=== PATIENT | female | born 1985 | race Hispanic/Latino ===

== ENCOUNTER 2024-03-26 08:09 | Emergency (ER) | payer BC, MEDICAID ==
[~2024-03-26] VITALS: Ht 165.1 cm; Wt 108.9 kg
[2024-03-26 08:10] VITALS: BP 135/85; PULSE 90; RESP 16
[2024-03-26] MEDS ORDERED: CIPOTIC OT (08:46)
== END 2024-03-26 09:19 | disposition home or self-care (01) ==
LOC: EDH 08:09
DX: T16.1XXA Foreign body in right ear, initial encounter (principal); X58.XXXA Exposure to other specified factors, initial encounter; Y93.89 Activity, other specified; Y92.89 Other specified places as the place of occurrence of the external cause; Y99.8 Other external cause status

== ENCOUNTER 2025-02-25 15:42 | Emergency (ER) | payer BC, MEDICAID ==
[~2025-02-25] VITALS: Ht 165.1 cm; Wt 116.6 kg
[~2025-02-25 15:42] MED LIST: CIPOTIC OT
--- NOTE | 2025-02-25 16:23 | ERN ---
General Chief Complaint: OB>20 weeks gest. Stated Complaint: BACK PAIN, VAGINAL BLEEDING, 33 WKS Time Seen by MD: 15:45 Time Seen by Midlevel: 15:45 Source: patient History of Present Illness Initial Comments 39 y/o female presents to the ED due to vaginal bleeding onset [employer]. Patient states she was in the shower and noted large amount of blood, one time episode bleeding has now resolved. Patient states she is 33 weeks A0, OBGYN in [place], [place]. Patient states back pain but denies any abdominal pain, cramping, vomiting or further associated symptoms. Denies significant past medical history. Allergies: Coded Allergies: No Known Allergies (Unverified Allergy, Unknown, 03/26/24) Home Meds Active Scripts Ciprofloxacin/Hydrocortisone (Cipro Hc Otic Suspension) 0.2 %-1 % Drops.susp, 10 ML OT DAILY for 5 Days, #1 DROP Prov:BARB WOMACK MD 03/26/24 Past Medical History Past Medical History: No Pertinent History Past Surgical History: None Female( History) : 5 Para: 4 Aborts: 0 ROS Dictation Constitutional: Negative for fever,chills, and weight loss Eyes: Negative for injury, pain,redness, and discharge ENT: Negative for injury,pain or swelling Cardiovascular: Negative for chest pain, palpitations, and edema Respiratory: Negative for shortness of breath, cough, and wheezing, Abdomen/GI: Negative for abdominal pain, nausea, vomiting, diarrhea, and constipation Back: Positive for back pain Negative for injury and pain : Positive for vaginal bleeding Negative for painful urination, bleeding or discharge MS/Extremity: Negative for injury and deformity Skin: Negative for rash, and discoloration Neuro: Negative for headache, weakness, numbness, tingling, and seizure Psych: Negative for suicide ideation, homicidal ideation, and hallucinations Physical Exam Physical Exam Dictation General: awake, alert, no acute distress Head/Face: Normocephalic, atraumatic Eyes: PERRL, EOMI, normal conjunctiva ENT: oral cavity clear, oral mucosa moist Neck: Supple, normal range of motion Cardiovascular: RRR, normal S1/S2 Respiratory: CTAB, no respiratory distress Abdomen: Soft, non-tender, non-distended, no guarding or rebound. : No active bleeding Skin: Warm, dry, normal turgor, no rash MS/Extremity: Pulses equal, no cyanosis, neurovascular intact, FROM Neuro: COAx4, GCS 15, strength 5/5, CN 2-12 intact, normal cerebellar exam, normal gait Psych: Normal behavior, mood, and affect normal Results Laboratory and Microbiology Lab and Micro Result Laboratory Tests Test 02/25/25 16:12 White Blood Count 7.1 K/uL (4.8-10.8) Red Blood Count 4.00 MIL/uL (4.00-5.50) Hemoglobin 8.5 g/dL (12.0-16.0) L Hematocrit 28.4 % (36-48) L Mean Corpuscular Volume 71.0 fL (79-99) L Mean Corpuscular Hemoglobin 21.3 pg (27.0-33.0) L Mean Corpuscular Hemoglobin Concent 29.9 g/dL (32.0-36.0) L Red Cell Distribution Width 15.4 % (11.0-15.5) Platelet Count 317 K/uL (130-400) Mean Platelet Volume 11.0 fL (7.5-10.5) H Immature Granulocyte % (Auto) 0.3 % (0-1) Neutrophils (%) (Auto) 66.8 % (40.0-77.0) Lymphocytes (%) (Auto) 23.5 % (21.0-51.0) Monocytes (%) (Auto) 6.0 % (3.0-13.0) Eosinophils (%) (Auto) 2.7 % (0.0-8.0) Basophils (%) (Auto) 0.7 % (0.0-5.0) Neutrophils # (Auto) 4.7 K/uL (1.8-7.7) Lymphocytes # (Auto) 1.7 K/uL (1.0-4.8) Monocytes # (Auto) 0.4 K/uL (0.1-1.0) Eosinophils # (Auto) 0.19 K/uL (0.00-0.70) Basophils # (Auto) 0.05 K/uL (0.00-0.20) Absolute Immature Granulocyte (auto 0.02 K/uL (0-1) Nucleated Red Blood Cells 0.0 % (0.0-0.19) Red Blood Cell Morphology See comments Sodium Level 135 mmol/L (136-145) L Potassium Level 3.5 mmol/L (3.5-5.1) Chloride Level 106 mmol/L (101-111) Carbon Dioxide Level 20 mmol/L (21-32) L Blood Urea Nitrogen 6 mg/dL (7-18) L Creatinine 0.4 mg/dL (0.5-1.0) L Glomerular Filtration Rate Calc 131 mL/min (>90) Random Glucose 82 mg/dL (70-105) Total Calcium 8.1 mg/dL (8.5-10.1) L Human Chorionic Gonadotropin, Quant 04251 mIU/mL (0-5) H Labs Reviewed?: Yes EKG/XRAY/US/CT/MRI Ultrasound Comment REASON: Vaginal bleeding ORDERING PHYSICIAN: LEEROY GRANT PROCEDURE: OB >14 - US OB >14 WEEKS Examination: OB ultrasound greater than 14 weeks Clinical history: Vaginal bleeding Comparison: None Findings: Grayscale and color ultrasound images of the pelvis were obtained. There is a single live intrauterine with an approximate gestational age of 34 weeks and 5 days (???3 weeks) according to the biometry, in the cephalic orientation, with a regular heart rate of 152 bpm. There is longitudinal lie, and a normal amniotic fluid index of 10 cm's. The estimated weight is 2441 g ???356 g. The placenta is anterior and grade 2 maturity. There is no previa. The visualized anatomy is within normal limits. The cervix was not adequately visualized for characterization. IMPRESSION: 1. Single viable intrauterine at 34 weeks 5 days gestation, cephalic presentation. 2. No acute findings. /[place] DICTATED BY: PAUL RUSSELL Jr., MD DATE: 02/25/25 184 [facility] MDM: Differential diagnosis: Threatened , UTI, uterine rupture, placenta previa, placental abruption Rationale: 39 y/o female presents to the ED due to vaginal bleeding onset [employer]. Patient states she was in the shower and noted large amount of blood, one time episode bleeding has now resolved. Patient states she is 33 weeks A0, OBGYN in [place], [place]. Patient states back pain but denies any abdominal pain, cramping, vomiting or further associated symptoms. Denies significant past medical history. Labs obtained indicating anemia with hemoglobin of 8.5, hyponatremia 135, BUN six, creatinine 0.4, hCG 77204. Ultrasound obtained indicating a single viable intrauterine at 34 weeks five days gestation cephalic presentation, 152 beats per minute, no acute findings. No active bleeding noted on vaginal examination. Patient was educated on findings and decision for transfer. Patient verbalized understanding and agrees with transfer. Patient accepted at [facility] There are no social concerns with this patient. I independently interpreted the test that were performed, results were reviewed by me and considered findings on radiology if ordered. Medical management and examination interpretation discussions were had by me with other qualified healthcare professionals as indicated for the patient's care. ED Course Orders Procedure Category Date Status Time Cbc With Differential LAB 02/25/25 Complete 15:52 Basic Metabolic Panel LAB 02/25/25 Complete 15:52 Urinalysis LAB 02/25/25 Logged W/Microscopic 15:52 Hcg,Quantitative LAB 02/25/25 Complete 15:52 Us Ob >14 Weeks US 02/25/25 Resulted 15:52 0.9%Nacl 1000ml (Ns PHA 02/25/25 In Process 1000ml) 17:30 Current Medications Medications (Trade) Dose Ordered Sig/Lucrecia Route PRN Reason Start Time Stop Time Status Last Admin Dose Admin Sodium Chloride 1,000 ml @ 0 mls/hr ONCE IV 02/25/25 17:30 02/26/25 17:29 Vital Signs Date Time Temp Pulse Resp B/P (MAP) Pulse Ox O2 Delivery O2 Flow Rate FiO2 02/25/25 16:21 88 20 115/51 97 Room Air* 0 21 02/25/25 15:44 97.9 92 16 117/76 98 Room Air 0 DX & DISP Disposition: Transfer Decision to Admit Date: Feb 25, 2025 Departure Impression: Primary Impression: Vaginal bleeding in patient after first trimester Condition: Stable Referrals: ANU CERVANTES MD (PCP) I performed the substantive portion of the visit. I have reviewed and personally made and approve the management plan that is documented in the notes by myself or the MAYRA. I acknowledge full responsibility for the patient's management plan. LEEROY GRANT Feb 25, 2025 16:23
[2025-02-25 16:27] LABS: IMMATURE GRANULOCYTE ABSOLUTE 0.02 K/uL (0-1); NUCLEATED RED BLOOD CELLS 0.0 % (0.0-0.19); PLATELET COUNT (AUTO) 317 K/uL (130-400); RED BLOOD CELL COUNT(AUTO) 4.00 MIL/uL (4.00-5.50); RED CELL DISTRIBUTION WIDTH 15.4 % (11.0-15.5); WHITE BLOOD COUNT (AUTO) 7.1 K/uL (4.8-10.8)
[2025-02-25 16:42] LABS: CREATININE 0.4 mg/dL (0.5-1.0); GLOMERULAR FILTR. RATE CALC 131.0 mL/min (>90); GLUCOSE,RANDOM 82.0 mg/dL (70-105); SODIUM SERUM 135.0 mmol/L (136-145); UREA NITROGEN, BLOOD 6.0 mg/dL (7-18)
[2025-02-25 17:09] LABS: HCG,QUANTITATIVE 33365.0 mIU/mL (0-5)
--- NOTE | 2025-02-25 17:45 | HMCIMG ---
Examination: OB ultrasound greater than 14 weeks Clinical history: Vaginal bleeding Comparison: None Findings: Grayscale and color ultrasound images of the pelvis were obtained. There is a single live intrauterine with an approximate gestational age of 34 weeks and 5 days (???3 weeks) according to the biometry, in the cephalic orientation, with a regular heart rate of 152 bpm. There is longitudinal lie, and a normal amniotic fluid index of 10 cm's. The estimated weight is 2441 g ???356 g. The placenta is anterior and grade 2 maturity. There is no previa. The visualized anatomy is within normal limits. The cervix was not adequately visualized for characterization. IMPRESSION: 1. Single viable intrauterine at 34 weeks 5 days gestation, cephalic presentation. 2. No acute findings. /[place]
--- NOTE | 2025-02-25 18:00 | NUR ---
CALLED [facility] TO ETA ON EMS TRANSFER AND THEY STATE PT IS NEXT IN LINE. NO ETA GIVEN.
--- NOTE | 2025-02-25 18:54 | NUR ---
CALLED [facility] FOR ETA FOR OB TRANSFER AND THEY STATE DUE TO EMERGENT CALLS THAT THEY ANSWER THOSE CALLS BUT THAT SHE IS NEXT IN LINE. SAME REPORT GIVEN TO ME 1 HR AGO.
[2025-02-25] MEDS: 0.9%NACL 1000ML 1,000 ML IV SCH (18:58)
--- NOTE | 2025-02-25 19:17 | NUR ---
Spoke to Chava Mike RN intrim director, Chava spoke to dispatch about transfer, as per dispatch, EMS transport will be here in 10 minutes.
[2025-02-25 19:30] VITALS: BP 118/64; PULSE 86; RESP 20; TEMP 98; O2SAT 98
--- NOTE | 2025-02-25 19:30 | NUR ---
Patient states she was tired of waiting and called for a ride to take her over to other hospital. patient informed that the EMS will be here in 10 minutes. patient reported her ride is here and she had been waiting for EMS for a long time. Patient made aware of risk associated with leaving against medical advice. patient signed AMA form.
== END 2025-02-25 19:30 | disposition left against medical advice (07) ==
LOC: EDH 15:42
DX: O46.93 Antepartum hemorrhage, unspecified, third trimester (principal); O26.893 Other specified pregnancy related conditions, third trimester; R10.2 Pelvic and perineal pain; Z3A.34 34 weeks gestation of pregnancy
CPT/HCPCS: 36415; 76805; 80048; 84702; 85025; 99285